=== PATIENT | female | born 1995 | race Caucasian/White ===

== ENCOUNTER 2017-02-15 21:34 | Emergency (ER) | payer OTHER ==
[2017-02-15 22:38] VITALS: BP 113/74
== END 2017-02-15 22:38 | disposition home or self-care (01) ==
LOC: ED 21:34
DX: K21.9 Gastro-esophageal reflux disease without esophagitis (principal); Z88.0 Allergy status to penicillin

== ENCOUNTER 2017-12-17 20:23 | Emergency (ER) | payer OTHER ==
[~2017-12-17] VITALS: Ht 157.5 cm; Wt 58.5 kg
[2017-12-17 20:29] VITALS: Ht 157.5 cm; Wt 58.5 kg
[2017-12-17 21:07] LABS: BASOPHIL % 0.6 % (0-2); PLATELET COUNT 279 x10^3mcL (130-400); RED CELL DISTRIBUTION WIDTH 12.6 % (11.5-14.5)
[2017-12-17 21:15] LABS: CALCIUM 9.5 mg/dL (8.5-10.1); CARBON DIOXIDE 30.3 mmol/L (21-32); CHLORIDE SERUM 102 mmol/L (98-107); CREATININE SERUM 0.7 mg/dL (0.6-1.0); GFR1 > 60 mL/min; GLUCOSE SERUM 92 mg/dL (74-106); SODIUM SERUM 135 mmol/L (136-145)
[2017-12-17 21:44] VITALS: BP 109/64
== END 2017-12-17 21:44 | disposition home or self-care (01) ==
LOC: ED 20:23
PROVIDERS: Emergency Medicine
DX: R07.89 Other chest pain (principal); R06.02 Shortness of breath; Z88.0 Allergy status to penicillin
CPT/HCPCS: 36415; J1885